=== PATIENT | male | born 1985 | race Caucasian/White ===

== ENCOUNTER 2020-02-16 10:39 | Emergency (ER) | payer OTHER ==
[~2020-02-16] VITALS: Ht 175.3 cm; Wt 84.2 kg
[2020-02-16] MEDS ORDERED: FLUORESCEIN OPHTH 1 MG STRIP OS ONE (11:15)
[2020-02-16] MEDS ORDERED: TETRACAINE 0.5% OPHTH SOLN 4ML OS ONE (11:15)
[2020-02-16] MEDS ORDERED: IBUPROFEN 600MG TAB PO ONE (11:45)
--- NOTE | 2020-02-16 12:38 | REP ---
Clinical: Rule out foreign body. Technique: Axial noncontrast images through the orbits with coronal and sagittal re-formations. Findings: The bilateral orbits are symmetric and normal. No evidence for acute injury or foreign body. The globes and intraconal contents are symmetric and normal. No significant infectious or inflammatory changes are appreciated. Incidental mild mucosal thickening to the right frontal and right ethmoid sinuses. No fluid levels to suggest occult injury. The mastoid air cells are clear. The osseous structures are intact. Impression: Minimal sinus disease. No evidence for acute injury. No foreign body. Bilateral orbits are symmetric and normal. Electronically Signed by Pavel Funes MD 02/16/2020 12:29 P
[2020-02-16] MEDS ORDERED: ERYT5OIN25 OS ×2 (12:48→14:41)
[2020-02-16 12:56] VITALS: BP 142/87
== END 2020-02-16 13:02 | disposition home or self-care (01) ==
LOC: M ED 10:39
DX: S05.92XA Unspecified injury of left eye and orbit, initial encounter (principal); W57.XXXA Bitten or stung by nonvenomous insect and other nonvenomous arthropods, initial encounter; Y93.89 Activity, other specified; Y92.89 Other specified places as the place of occurrence of the external cause; Y99.8 Other external cause status